=== PATIENT | female | born 1985 | race Caucasian/White ===

== ENCOUNTER 2017-02-26 12:00 | Emergency (ER) | payer SELFPAY ==
[~2017-02-26] VITALS: Ht 165.1 cm; Wt 74.7 kg
[~2017-02-26 12:00] MED LIST: ACET-62 PO; BISM262O28 PO; DIPH25CA6 PO; HYDR25TA85 PO; LAMO25TA8 PO; LORA10TA7 PO; MELO-267 PO; ORPH100T2 PO
--- OUTSIDE RECORDS SUMMARY | 2017-02-26 12:06 | XMS REPORT | Continuity of Care Document ---
Author Author [facility] Organization [facility] Address Unknown Phone Unavailable Support Name Relationship Address Phone SANCHO TRAORE MD Caregiver [address] [place] [id number] Unavailable ALEYDA CABAN Next Of Kin Unknown [phone] Insurance Providers Guarantor Nesbitt,Tyra Address [address] [place] [address] Email DENIED 17 Payer Self Pay Subscriber's Name Tyra Nesbitt Relationship 18 Self Chief Complaint and Reason for Visit Chief Complaint Chest Pain Reason for Visit Anxiety [id number] Problems Past Problems Medical Problem Onset Date Abdominal pain Unknown Anxiety Unknown Medication reaction Unknown Methamphetamine abuse Unknown Urinary tract infection Unknown Medications Current Home Medications Medication Dose Units Route Directions Days Qty Instructions Start Date Acetaminophen 500 Mg Tablet 500 Mg Oral Every 6 Hours as needed for Pain 01/22/17 Bismuth Subsalicylate (Pepto-Bismol) 262 Mg/15 Ml Oral.susp 30 Ml Oral As Needed 01/22/17 Diphenhydramine Hcl 25 Mg Capsule 25 Mg Oral Every 6 Hours as needed for Prn Orders 01/22/17 Hydroxyzine Hcl 25 Mg Tablet 25 Mg Oral As Needed 01/22/17 Lamotrigine 25 Mg Tablet 25 Mg Oral Twice A Day 01/22/17 Loratadine 10 Mg Tablet 10 Mg Oral Before Breakfast 01/22/17 Meloxicam 15 Mg Tablet 15 Mg Oral Daily 01/22/17 Orphenadrine Citrate 100 Mg Tablet.er 1 Tab Oral 2 Times Daily Prn for Muscle Pain 60 Tablet 01/22/17 Social History Social History Problem Response Recorded Date/Time Onset Date Status Hx Substance Use Yes 01/22/2017 8:12pm Not Applicable Not Applicable Hx Alcohol Use Yes 01/22/2017 8:12pm Not Applicable Not Applicable Query Response Start Date Stop Date Smoking Status Current every day smoker Hospital Discharge Instructions No hospital discharge instructions. Plan of Care Discharge Date 01/22/17 11:01pm Disposition 01 DISCHARGED HOME, SELF-CARE Condition at Discharge Improved Instructions/Education Provided Anxiety (ED) Prescriptions See Medication Section Additional Instructions/Education Your welcome to try Norflex twice a day. This is not a typical treatment for anxiety, but if it is helped with your med reaction and anxiety, he can talk to her primary care provider to see if it's appropriate. Functional Status No functional status results. Allergies, Adverse Reactions, Alerts No known allergies. Immunizations No immunization records. Vital Signs Acute Vital Signs Vital Response Date/Time Temperature (Fahrenheit) 98.3 deg F (96.8 - 99.1) 01/22/2017 11:01pm Temperature (Calculated Celsius) 36.83303 degrees C (36.0 - 37.3) 01/22/2017 11:01pm Pulse Rate (adult) 68 bpm (60 - 100) 01/22/2017 11:01pm Respiratory Rate 20 breaths/min (10 - 20) 01/22/2017 11:01pm O2 Sat by Pulse Oximetry 98 % (90 - 100) 01/22/2017 11:01pm Blood Pressure 107/68 mm Hg 01/22/2017 11:01pm Blood Pressure 105/60 mm Hg 01/22/2017 11:01pm Height (Feet) 5 feet 12/22/2016 7:26pm Height (Inches) 65.00 inches 01/22/2017 7:51pm Weight (Kilograms) 72.500 kg 01/22/2017 7:51pm Body Mass Index (BMI) 26.0 01/22/2017 7:51pm Results Laboratory Results Test Name Result Units Flags Reference Collection Date/Time Result Date/ Time Comments N. gonorrhoeae DNA Specimen Source URINE 12/22/2016 3:10pm 2016 7:05pm Urine WBC 30-50 /HPF H 0-5 12/22/2016 3:10pm 12/22/2016 3:44pm Urine RBC 5-10 /HPF H 0-3 12/22/2016 3:10pm 12/22/2016 3:44pm Urine Squamous Epithelial Cells 10-20 12/22/2016 3:10pm 12/22/2016 3:44pm Urine Bacteria 2+ H NEGATIVE 12/22/2016 3:10pm 12/22/2016 3:44pm Urine Amorphous Urates FEW 12/22/2016 3:10pm 12/22/2016 3:44pm Urine Mucus PRESENT 12/22/2016 3:10pm 12/22/2016 3:44pm Urine Culture Indicated CULT REFLEXED &SETUP 12/22/2016 3:10pm 3:44pm White Blood Count 6.9 T/MM3 4.5-11.0 01/22/2017 8:01/22/2017 8: 25pm Red Blood Count 4.37 M/MM3 4.00-5.20 01/22/2017 8:01/22/2017 8: 25pm Hemoglobin 13.4 GM/DL 12-16 01/22/2017 8:01/22/2017 8:25pm Hematocrit 40.5 % 36-46 01/22/2017 8:01/22/2017 8:25pm Mean Corpuscular Volume 92.7 UM3 80-100 01/22/2017 8:01/22/2017 8: 25pm Mean Corpuscular Hemoglobin 30.7 UUG 26-34 01/22/2017 8:2016 8:25pm Mean Corpuscular Hemoglobin Concent 33.1 GM/DL 31-37 01/22/2017 8:01/22/2017 8:25pm RDW Standard Deviation 39.5 FL 36.9-50.2 01/22/2017 8:01/22/2017 8 :25pm Platelet Count 225 T/MM3 130-400 01/22/2017 8:01/22/2017 8:25pm Mean Platelet Volume 11.4 UM3 9.4-12.4 01/22/2017 8:01/22/2017 8: 25pm Neutrophils (%) (Auto) 45.6 % 33-66 01/22/2017 8:01/22/2017 8: 25pm Lymphocytes (%) (Auto) 42.6 % 23-45 01/22/2017 8:01/22/2017 8: 25pm Monocytes (%) (Auto) 6.8 % 0-9.0 01/22/2017 8:01/22/2017 8:25pm Eosinophils (%) (Auto) 4.6 % H 0-4 01/22/2017 8:01/22/2017 8:25pm Basophils (%) (Auto) 0.3 % 0-2 01/22/2017 8:01/22/2017 8:25pm Immature Granulocyte % (Auto) 0.1 % 0.0-0.5 01/22/2017 8:2016 8:25pm Absolute Neutrophils (auto) 3.1 T/MM3 1.8-7.7 01/22/2017 8:2016 8:25pm Absolute Lymphocytes (auto) 2.9 T/MM3 1-4.8 01/22/2017 8:2016 8:25pm Absolute Monocytes (auto) 0.5 T/MM3 0-0.8 01/22/2017 8:01/22/2017 8:25pm Absolute Eosinophils (auto) 0.3 T/MM3 0-0.5 01/22/2017 8:2016 8:25pm Absolute Basophils (auto) 0.0 T/MM3 0-0.2 01/22/2017 8:01/22/2017 8:25pm Absolute Immature Granulocyte (auto 0.01 T/MM3 0.00-0.03 01/22/2017 8: 01/22/2017 8:25pm D-Dimer 156 NG/ML 0-230 01/22/2017 8:01/22/2017 8:30pm <230 NG/ ML D-DU=PRESUMPTIVE NEGATIVE FOR PE OR DVT >230 NG/ML D-DU=ADDITIONAL EVAL FOR PE OR DVT RECOMMENDED Icterus Index < 2 0-7 01/22/2017 8:01/22/2017 8:34pm Chemistry Specimen Hemolysis < 15 0-25 01/22/2017 8:01/22/2017 8 :34pm 0-25: Specimen Exhibited No Hemolysis. Turbidity < 20 0-20 01/22/2017 8:01/22/2017 8:34pm Sodium Level 142 MEQ/L 134-144 01/22/2017 8:01/22/2017 8:34pm Potassium Level 4.0 MEQ/L 3.6-5 01/22/2017 8:01/22/2017 8:34pm Chloride Level 108 MEQ/L H 98-107 01/22/2017 8:01/22/2017 8:34pm Carbon Dioxide Level 24 MEQ/L 22-30 01/22/2017 8:01/22/2017 8: 34pm Anion Gap 10 MEQ/L 5-15 01/22/2017 8:01/22/2017 8:34pm Blood Urea Nitrogen 17.0 MG/DL 7-01/22/2017 8:01/22/2017 8: 34pm Creatinine 0.9 MG/DL 0.7-1.2 01/22/2017 8:01/22/2017 8:34pm BUN/Creatinine Ratio 19 RATIO 6-01/22/2017 8:01/22/2017 8:34pm Glomerular Filtration Rate Calc 73 01/22/2017 8:01/22/2017 8: 34pm Glucose Level 91 MG/DL 65-110 01/22/2017 8:01/22/2017 8:34pm Calculated Osmolality 275 MOSM/KG 261-280 01/22/2017 8:01/22/2017 8:34pm Calcium Level 9.9 MG/DL 8.4-10.2 01/22/2017 8:01/22/2017 8:34pm Total Bilirubin 0.40 MG/DL 0.20-1.30 01/22/2017 8:01/22/2017 8: 34pm Alkaline Phosphatase 63 U/L 38-126 01/22/2017 8:01/22/2017 8:34pm Total Protein 7.4 G/DL 6.3-8.2 01/22/2017 8:01/22/2017 8:34pm Albumin 4.3 G/DL 3.5-5.0 01/22/2017 8:01/22/2017 8:34pm Globulin 3.1 G/DL 2.4-3.6 01/22/2017 8:01/22/2017 8:34pm Albumin/Globulin Ratio 1.4 RATIO 1.1-2.2 01/22/2017 8:01/22/2017 8 :34pm Aspartate Amino Transf (AST/SGOT) 86 U/L H 14-36 01/22/2017 8:01/22 8:34pm Alanine Aminotransferase (ALT/SGPT) 134 U/L H 9-52 01/22/2017 8:12pm 8:34pm Troponin I < 0.012 ng/ml 0-0.12 01/22/2017 8:12pm 01/22/2017 8:45pm Troponin values with a difference of 55% increase from orginal troponin value represent a true biological DELTA value. (%increase Calc=Orginal Troponin value, divided by subsequent Troponin value, multiplied by 100) Lipase 113 U/L 23-300 01/22/2017 8:12pm 01/22/2017 8:34pm Urine Collection Type VOIDED-NOT CC-MIDSTR 01/22/2017 9:40pm 2016 9:55pm Urine Color YELLOW YELLOW 01/22/2017 9:40pm 01/22/2017 9:55pm Urine Turbidity CLOUDY CLEAR 01/22/2017 9:40pm 01/22/2017 9:55pm Urine Specific Belk 1.015 1.015-1.025 01/22/2017 9:40pm 2016 9:55pm Urine pH 7.0 5.0-8.0 01/22/2017 9:40pm 01/22/2017 9:55pm Urine Leukocyte Esterase NEGATIVE NEGATIVE 01/22/2017 9:40pm 2016 9:55pm Urine Nitrite NEGATIVE NEGATIVE 01/22/2017 9:40pm 01/22/2017 9:55pm Urine Protein NEGATIVE NEGATIVE 01/22/2017 9:40pm 01/22/2017 9:55pm Urine Glucose (UA) NEGATIVE NEGATIVE 01/22/2017 9:40pm 01/22/2017 9: 55pm Urine Ketones NEGATIVE NEGATIVE 01/22/2017 9:40pm 01/22/2017 9:55pm Urine Urobilinogen 0.2 EU/DL NORMAL 01/22/2017 9:40pm 01/22/2017 9: 55pm Urine Bilirubin NEGATIVE NEGATIVE 01/22/2017 9:40pm 01/22/2017 9: 55pm Urine Blood NEGATIVE NEGATIVE 01/22/2017 9:40pm 01/22/2017 9:55pm Urinalysis Comment MICROSCOPIC NOT IND. 01/22/2017 9:40pm 2016 9:55pm Microbiology Results Procedure Source Organism/Result Collection Date/Time Result Date/Time Result Status Urine Culture Urine, Voided-Not Cc-Midstream STREPTOCOCCUS ANGINOSUS 2016 3:44pm 12/25/2016 7:26am Final Procedures Procedure Status Date Provider(s) Hydrate iv infusion add-on Completed 12/22/16 Ther/proph/diag inj iv push Completed 12/22/16 Tx/pro/dx inj new drug addon Completed 12/22/16 Tx/pro/dx inj new drug addon Completed 12/22/16 Tx/pro/dx inj same drug buoy tender Completed 12/22/16 Ther/proph/diag inj iv push Completed 12/22/16 Encounters Encounter Location Arrival/Admit Date Discharge/Depart Date Attending Provider Departed Emergency Room [facility] 01/22/17 7:50pm 01/22/17 11: 01pm SANCHO TRAORE MD Departed Emergency Room [facility] 12/22/16 7:26pm 12/22/16 10: 09pm ISIS MCFARLAND DO Departed Emergency Room [facility] 12/22/16 2:06pm 12/22/16 5: 02pm LUI MARTIN DO Recent Diagnosis
--- OUTSIDE RECORDS SUMMARY | 2017-02-26 12:06 | XMS REPORT | Continuity of Care Document ---
Author Author [facility] Organization [facility] Address Unknown Phone Unavailable Allergies Active Description Code Type Severity Reaction Onset Reported/Identified Relationship to Patient Clinical Status Yes No Known Drug Allergies Drug Allergy N/A N/A 12/27/2013 Yes No Known Drug Allergies Drug Allergy N/A N/A 12/27/2013 Yes codeine Drug Allergy N/A Adverse Reaction 12/29/2013 Yes Penicillins Drug Allergy N/A Urticaria (hives) 12/29/2013 Yes No Allergy Information Drug Allergy N/A N/A 01/03/2014 Medications Problems Date Dx Coded Attending Type Code Diagnosis Diagnosed By 12/27/2013 Kimberly Spence MD Final 285.9 ANEMIA NOS 12/27/2013 Kimberly Spence MD Final 296.33 RECURRENT MDD-SEVERE 12/27/2013 Kimberly Spence MD Final 496 CHRONIC AIRWAY OBSTR NEC 12/27/2013 Kimberly Spence MD Final 535.50 GASTRODUODENITIS NOS 12/27/2013 Kimberly Spence MD Final 737.30 IDIOPATHIC SCOLIOSIS 12/27/2013 Kimberly Spence MD Final 786.52 PAINFUL RESPIRATION 12/27/2013 Kimberly Spence MD Final 965.4 POIS-AROMA ANALGES NEC 12/27/2013 Kimberly Spence MD Final 965.61 POISON-PROP ACID DERIV 12/27/2013 Kimberly Spence MD External E950.0 SUICIDE-ANALGESICS 12/27/2013 Final 285.9 ANEMIA NOS 12/27/2013 Final 296.33 RECURRENT MDD-SEVERE 12/27/2013 Final 496 CHRONIC AIRWAY OBSTR NEC 12/27/2013 Final 535.50 GASTRODUODENITIS NOS 12/27/2013 Final 737.30 IDIOPATHIC SCOLIOSIS 12/27/2013 Final 786.52 PAINFUL RESPIRATION 12/27/2013 Final 965.4 POIS-AROMA ANALGES NEC 12/27/2013 Final 965.61 POISON-PROP ACID DERIV 12/27/2013 External E950.0 SUICIDE-ANALGESICS 01/03/2014 Kenn Aguilar DO Final 285.1 ACUTE POSTHEMOR ANEMIA 01/03/2014 Kenn Aguilar DO Final 458.9 HYPOTENSION NOS 01/03/2014 Kenn Aguilar DO Final 807.01 FRACTURE ONE RIB-CLOSED 01/03/2014 Kenn Aguilar DO Final 860.4 TRAUM PNEUMOHEMOTHOR-CL 01/03/2014 Kenn Aguilar DO Final 879.2 OPN WND ANTERIOR ABDOMEN 01/03/2014 Kenn Aguilar DO External E985.4 UNDET CIRC-FIREARM NEC Procedures Code Description Performed By Performed On 34.04 INSERT INTERCOSTAL CATH Kenn Aguilar DO 01/03/2014 54.21 LAPAROSCOPY Kenn Aguilar DO 01/03/2014 Results Encounters ACCT No. Visit Date/Time Discharge Status Pt. Type Provider Facility Loc./Unit Complaint [id number] 12/27/2013 14:47:00 2013 13:42:00 DIS Inpatient Jordy CHU, Kimberly Deng [facility] on [address]
[2017-02-26 12:39] VITALS: TEMP 98.4; Ht 165.1 cm; Wt 74.7 kg
[2017-02-26] MEDS ORDERED: MELA5TAB14 PO (13:10)
--- NOTE | 2017-02-26 13:12 | ERPDOC ---
Departure Disposition Decision Date: Feb 26, 2017 Disposition Decision Time: 14:02 Disposition: 01 DISCHARGED HOME, SELF-CARE Impression Impression Impression: Primary Impression: Gastritis Severity: Mild Condition: Improved Seen By: Mid-level only Patient Instructions: Gastritis (ED) Problems/Meds/Labs Reviewed?: Yes Medications reviewed and manag: Yes Additional Instructions: 1. Avoid trigger foods and beverages as discussed. Avoid smoking, caffeine, fried spicy foods 2. Take prescribed medication for stomach 3. Avoid anti-inflammatory medications such as Aleve, Ibuprofen and aspirin. These can cause bleeding in the stomach 4. Follow up with your PCP for further evaluation and treatment next week. Departure Forms: Return to Work/School Permit Return to Work/School Date: Feb 27, 2017 Follow up care ordered?: Yes Mental Status: Alert, Oriented Scripts Omeprazole (Omeprazole) 20 Mg Capsule.dr 20 MG PO ACB for 14 Days, #14 CAP Take 1 capsule, by mouth, one time a day (before breakfast). Prov: CHING PINEDA DIRECTOR OF MANAGED SERVICES 02/26/17 HPI - Abdominal Pain General Chief Complaint: Abdominal Pain Stated Complaint: ABD PAIN, HEADACHE, & HBP Time Seen by Provider: 13:11 Source: patient History/Exam Limitations: no limitations HPI - Abdominal Pain Initial Comments Suzanne is a 31 year old female who has been clean from meth 66 days. Today she was at [facility] and they had taken her BP reporting it at 120/105 and took her to the ER to be checked out. She complains of a headache which is located to the frontal aspect, hx chronic headaches, this is similar. Reports epigastric discomfort for a week and has a history of an ulcer reportedly diagnosed by a sonogram in [facility] years ago and treated with Zantac. Does not take NSAIDs currently. Does not take any antacids, PPIs or H2 blockers. Denies alcohol use. Denies chest pain. Denies shortness of air. Occurred At: other ([facility]) Onset: Changing over time Duration: 1 week Pain Scale: Now: 6/10 Quality: burning Location: epigastric Radiation: no radiation Activities at Onset: none Associated Symptoms: headache, DENIES: chest pain Hx of Similar Symptoms: Yes Allergies: Coded Allergies: hydroxyzine (Verified Adverse Reaction, Intermediate, ANXIETY REACTION, ) Past History Past Medical History Female: , para Psychological: drug abuse Surgical History Denies Surgeries Social History Smoking Status: Current every day smoker Substance Use Type: former substance user, methamphetamine Substance last used: prior to arrival, hours (ago) Alcohol Intake: none Marital Status: Single Sexuality: male partner Number of Children: 3 Current Occupational Status: employed Review of Systems Constitutional Constitutional: DENIES: dizziness, fever ENMT Sinuses: DENIES: congestion Mouth/Throat: DENIES: sore throat Cardiovascular Cardiac: DENIES: chest pain, dyspnea on exertion Pulmonary Respiratory: DENIES: cough GI Upper Abdomen: nausea, pain, DENIES: vomiting Lower Abdomen: DENIES: diarrhea General: DENIES: dysuria Musculoskeletal General: DENIES: pain Neurological General: headache All other Systems All Other Systems: Reviewed and Negative Physical Exam General General Nourishment: well nourished, well developed, appears stated age, no acute distress Vitals and Pain First Documented Vital Signs Date Time Temp Pulse Resp B/P Pulse Ox O2 Delivery O2 Flow Rate FiO2 02/26/17 12:39 98.4 83 18 119/83 99 Room Air Weight: Kilograms: 74.700 Height (feet): 5 Height (inches): 5.00 Triage Pain Scale: Eyes (brief) Eyes Brief: found: PERRL, not found: scleral icterus ENMT (brief) ENMT Brief: FOUND: mucosa moist, NOT FOUND: pharnyx erythema Neck (brief) Neck: FOUND: trachea midline Respiratory (brief) Respiratory: FOUND: clear all carlin, equal bilaterally Cardiovascular (brief) Cardiac: FOUND: regular rate, regular rhythm Abdomen (brief) Abdominal Brief: FOUND: bowel normo active x4, soft, tender (epigastric) Lymphatic (brief) Lymphatic Brief: NOT FOUND: lymphedema Integumentary (brief) Integumentary Brief: FOUND: dry, pink, warm, NOT FOUND: rash Neurologic (brief) Neurological Brief: FOUND: CN w/o gross def to obs Psychiatric (brief) Psychiatric Brief: FOUND: alert, attentive, normal affect, oriented Differential Diagnoses Considering: Gastroenteritis, GERD, Ulcer Progress Results/Orders Orders Procedure Category Date Status Time G.I. Cocktail PHA 02/26/17 Complete (/Maalox/Lidocaine 13:30 Ketorolac (Toradol) PHA 02/26/17 Complete 13:30 Medications Current ED Medications Pharmacy Profile Note (/Maalox/ Lidocaine Soln) 30 ml O ONCE PO Last administered on 02/26/17 13:39; Start 02/26/17 at 13:30; Stop 02/26/17 at 13:31 ; Status DC Ketorolac Tromethamine (Toradol) 30 mg O ONCE IV Last administered on 13:39; Start 02/26/17 at 13:30; Stop 02/26/17 at 13:31; Status DC Progress Progress 1315- BP 119/83, patient advised of normal. GI cocktail ordered. Toradol 30 mg IV for headache-line started prior to initial evaluation 1400 - Headache improving. BP 99/55. Epigastric pain subsiding. Discussed avoiding trigger foods/drinks and taking PPI. F/u pcp. Return to er if bloody stools or vomit or increasing severe abd pain. CHING PINEDA APRN Feb 26, 2017 13:12
--- NOTE | 2017-02-26 13:13 | NUR ---
PROVIDER Cliff IPNEDA APRN AT BEDSIDE FOR H&P
--- OUTSIDE RECORDS SUMMARY | 2017-02-26 13:16 | XMS REPORT | Continuity of Care Document ---
Author Author [facility] Organization [facility] Address Unknown Phone Unavailable Allergies Active Description [...] Status Pt. Type Provider Facility Loc./Unit Complaint [id number] 12/27/2013 14:47:00 2013 13:42:00 DIS Inpatient Jordy CHU, Kimberly Deng [facility] on [address]
[2017-02-26] MEDS ORDERED: KETOROLAC 30mg/ml INJECTION IV ONE (13:30)
[2017-02-26] MEDS ORDERED: G.I. COCKTAIL 30ml PO ONE (13:30)
--- NOTE | 2017-02-26 13:56 | NUR ---
UPDATE PATIENT SITTING IN RECLINER. PATIENT REPORTS HER HEADACHE HAS IMPROVED BUT THAT HER STOMACH IS STILL BURNING.
[2017-02-26] MEDS ORDERED: OMEP20CA10 PO (14:04)
[2017-02-26 14:11] VITALS: BP 114/69; PULSE 72; RESP 16; O2SAT 98
== END 2017-02-26 14:11 | disposition home or self-care (01) ==
LOC: ED 12:00
DX: K29.70 Gastritis, unspecified, without bleeding (principal); R51 Headache